=== PATIENT | male | born 1995 | race Native Hawaiian/Other Pacific Islander ===

== ENCOUNTER 2019-06-30 11:14 | Emergency (ER) | payer OTHER ==
--- NOTE | 2019-06-30 11:57 | ED ---
General Adult HPI - General Chief complaint: Abdominal Pain Stated complaint: Blood in urine Time Seen by Provider: 06/30/19 11:38 Source: patient Mode of arrival: ambulatory Limitations: no limitations - History of Present Illness Initial comments: Dictation was produced using [employer] dictation software. please excuse any grammatical, word or spelling errors. Chief Complaint: 23-year-old male with chief complaint hematuria and flank pain. History of Present Illness: 23-year-old male he has history of kidney stones. Patient states for the last 1-2 weeks he's been having persistent right-sided flank pain and hematuria. Patient is a history of kidney stones. He still [place]. States that it's been several years since he is not has had a computed tomography scan. He states the flank pain is to his right lower flank radiating to the groin. He has been having intermittent episodes of hematuria. He states that sometimes gross blood sometimes not. He states that the pain as sharp and colicky in nature. He decided to wait to see if his symptoms would improve however given that spent approximately one week his symptoms feel as though they have been persistent and getting worse lately. Denies any fever, chills or night sweats. The ROS documented in this emergency department record has been reviewed and confirmed by me. Those systems with pertinent positive or negative responses have been documented in the HPI. All other systems are other negative and/or noncontributory. PHYSICAL EXAM: General Impression: Alert and oriented x3, not in acute distress HEENT: Normocephalic atraumatic, extra-ocular movements intact, pupils equal and reactive to light bilaterally, mucous membranes moist. Cardiovascular: Heart regular rate and rhythm, S1&S2 audible, no murmurs, rubs or gallops Chest: Lungs clear to auscultation bilaterally, no rhonchi, no wheeze, no rales Abdomen: Bowel sounds present, abdomen soft, non-tender, non-distended, no organomegaly Musculoskeletal: Pulses present and equal in all extremities, no peripheral edema Motor: no focal deficits noted Neurological: CN II-XII grossly intact, no focal motor or sensory deficits noted Skin: Intact with no visualized rashes Psych: Normal affect and mood ED course: 23-year-old male chief complaint of flank pain and hematuria. He has history of kidney stones. Upon arrival are within acceptable limits. Given that patient's symptoms have been improved and slightly worsening we will obtain computed tomography scan without contrast. Laboratory evaluation obtained. CBC shows no leukocytosis. Otherwise unremarkable. Metabolic panel is negative. No findings of acute kidney injury. Urinalysis shows greater than 182 red blood cells. Computed tomography scan of the abdomen and pelvis shows a 5 mm left proximal ureteral stone. Patient ambulatory at baseline. Patient given fluids and analgesia. Patient advised to follow-up with urology upon discharge for outpatient management of kidney stone. Patient is understandable agreeable to plan. Patient told to hydrate adequately. Return parameters discussed. All questions answered. - Related Data Allergies Allergy/AdvReac Type Severity Reaction Status Date / Time No Known Allergies Allergy Verified 06/30/19 11:25 Review of Systems ROS Statement: Those systems with pertinent positive or pertinent negative responses have been documented in the HPI. ROS Other: All systems not noted in ROS Statement are negative. Past Medical History Additional Past Medical History / Comment(s): Kidney stones, History of Any Multi-Drug Resistant Organisms: None Reported Past Surgical History: No Surgical Hx Reported Past Psychological History: No Psychological Hx Reported Smoking Status: Current every day smoker Past Alcohol Use History: Occasional Past Drug Use History: Marijuana General Exam Limitations: no limitations Course Vital Signs 06/30/19 06/30/19 11:23 12:15 Temperature 97.5 F L 98.2 F Pulse Rate 88 56 L Respiratory 20 18 Rate Blood Pressure 133/77 129/54 O2 Sat by Pulse 99 99 Oximetry Medical Decision Making - Lab Data Result diagrams: 06/30/19 11:44 06/30/19 11:44 Lab Results 06/30/19 06/30/19 06/30/19 Range/Units 11:35 11:44 11:44 WBC 5.7 (3.8-10.6) k/uL RBC 4.87 (4.30-5.90) m/uL Hgb 15.6 (13.0-17.5) gm/dL Hct 46.2 (39.0-53.0) % MCV 94.8 (80.0-100.0) fL MCH 32.1 (25.0-35.0) pg MCHC 33.9 (31.0-37.0) g/dL RDW 12.7 (11.5-15.5) % Plt Count 248 (150-450) k/uL Neutrophils % 50 % Lymphocytes % 38 % Monocytes % 6 % Eosinophils % 1 % Basophils % 3 % Neutrophils # 2.8 (1.3-7.7) k/uL Lymphocytes # 2.2 (1.0-4.8) k/uL Monocytes # 0.3 (0-1.0) k/uL Eosinophils # 0.1 (0-0.7) k/uL Basophils # 0.2 (0-0.2) k/uL Sodium 141 (137-145) mmol/L Potassium 4.4 (3.5-5.1) mmol/L Chloride 106 (98-107) mmol/L Carbon Dioxide 26 (22-30) mmol/L Anion Gap 9 mmol/L BUN 13 (9-20) mg/dL Creatinine 0.69 (0.66-1.25) mg/dL Est GFR (CKD-EPI)AfAm >90 (>60 ml/min/1.73 sqM) Est GFR (CKD-EPI)NonAf >90 (>60 ml/min/1.73 sqM) Glucose 95 (74-99) mg/dL Calcium 10.1 (8.4-10.2) mg/dL Total Bilirubin 0.7 (0.2-1.3) mg/dL AST 29 (17-59) U/L ALT 24 (21-72) U/L Alkaline Phosphatase 59 (38-126) U/L Total Protein 8.3 H (6.3-8.2) g/dL Albumin 5.0 (3.5-5.0) g/dL Lipase 33 (23-300) U/L Urine Color Red Urine Appearance Turbid (Clear) Urine pH 8.0 (5.0-8.0) Ur Specific Kemp 1.019 (1.001-1.035) Urine Protein 1+ H (Negative) Urine Glucose (UA) Negative (Negative) Urine Ketones Negative (Negative) Urine Blood Large H (Negative) Urine Nitrite Negative (Negative) Urine Bilirubin Negative (Negative) Urine Urobilinogen <2.0 (<2.0) mg/dL Ur Leukocyte Esterase Trace H (Negative) Urine RBC >182 H (0-5) /hpf Urine WBC 16 H (0-5) /hpf Disposition Clinical Impression: Nephrolithiasis Disposition: HOME SELF-CARE Condition: Good Instructions (If sedation given, give patient instructions): Kidney Stones (ED) Is patient prescribed a controlled substance at d/c from ED?: No Referrals: Alistair Harden MD [STAFF PHYSICIAN] - 1-2 days Time of Disposition: 13:00
[2019-06-30 12:02] LABS: Basophils # (A) 0.2 k/uL (0-0.2); Basophils % (A) 3 %; Eosinophils # (A) 0.1 k/uL (0-0.7); Eosinophils % (A) 1 %; HCT 46.2 % (39.0-53.0); HGB 15.6 gm/dL (13.0-17.5); Lymphocytes # (A) 2.2 k/uL (1.0-4.8); Lymphocytes % (A) 38 %; MCH 32.1 pg (25.0-35.0); MCHC 33.9 g/dL (31.0-37.0); MCV 94.8 fL (80.0-100.0); Mean Platelet Volume 7.4; Monocytes # (A) 0.3 k/uL (0-1.0); Monocytes % (A) 6 %; Neutrophils # (A) 2.8 k/uL (1.3-7.7); Neutrophils % (A) 50 %; Platelet Count 248 k/uL (150-450); RBC 4.87 m/uL (4.30-5.90); RDW 12.7 % (11.5-15.5); WBC 5.7 k/uL (3.8-10.6)
[2019-06-30 12:14] LABS: ALT 24 U/L (21-72); AST 29 U/L (17-59); African American GFR (CKD) >90 (>60 ml/min/1.73 sqM); Alkaline Phosphatase 59 U/L (38-126); Anion Gap 9 mmol/L; Blood Urea Nitrogen 13 mg/dL (9-20); Calcium 10.1 mg/dL (8.4-10.2); Carbon Dioxide 26 mmol/L (22-30); Chloride 106 mmol/L (98-107); Glucose 95 mg/dL (74-99); Non-African American GFR(CKD) >90 (>60 ml/min/1.73 sqM); Sodium 141 mmol/L (137-145); Total Bilirubin 0.7 mg/dL (0.2-1.3); Total Protein 8.3 g/dL (6.3-8.2)
[2019-06-30 12:20] LABS: Appearance,Urine Turbid (Clear); Bilirubin,Urine Negative (Negative); Blood,Urine Large (Negative); Color,Urine Red; Glucose,Urine (UA) Negative (Negative); Ketones,Urine Negative (Negative); Leukocyte Esterase,Urine Trace (Negative); Nitrite,Urine Negative (Negative); Protein,Urine 1+ (Negative); RBC,Urine >182 /hpf (0-5); Specific Gravity,Urine 1.019 (1.001-1.035); Urobilinogen,Urine <2.0 mg/dL (<2.0); WBC,Urine 16 /hpf (0-5)
[2019-06-30 12:28] LABS: Potassium 4.4 mmol/L (3.5-5.1)
--- NOTE | 2019-06-30 12:36 | CT ---
EXAMINATION TYPE: CT abdomen pelvis wo con DATE OF EXAM: 06/30/2019 COMPARISON: None HISTORY: Right sided flank pain CT DLP: 493.7 mGycm Automated exposure control for dose reduction was used. TECHNIQUE: Helical acquisition of images was performed from the lung bases through the pelvis. FINDINGS: LUNG BASES: No significant abnormality is appreciated. LIVER/GB: No significant abnormality is appreciated. No radiopaque calculi in the gallbladder. PANCREAS: No significant abnormality is seen. SPLEEN: No significant abnormality is seen. No splenomegaly. ADRENALS: No significant abnormality is seen. No nodularity or thickening. KIDNEYS: 5 mm calculus obstructs in the left proximal ureter creating mild left-sided hydronephrosis. No right renal calculi are seen. No right-sided hydronephrosis. No calculi in the urinary bladder. FREE AIR: No free air is visualized ADENOPATHY: No greater than 1 cm short axis lymph node in the abdomen or pelvis. REPRODUCTIVE ORGANS: No significant abnormality is seen OSSEOUS STRUCTURES: No significant abnormality is seen. BOWEL: No dilated large or small bowel. IMPRESSION: 5 mm calculus in the left proximal ureter creating mild left-sided hydronephrosis. No rig ht renal calculi no right-sided hydronephrosis.
[2019-06-30 12:38] VITALS: RESP 18
[2019-06-30] MEDS ORDERED: SODIUM CHLORIDE 0.9% 1,000 ML IV STA (12:45)
[2019-06-30] MEDS ORDERED: KETOROLAC 30 MG/ML 1 ML VIAL IVP STA (12:45)
[2019-06-30 13:36] VITALS: BP 134/54; PULSE 68; TEMP 98.4
== END 2019-06-30 13:25 | disposition home or self-care (01) ==
LOC: EC 11:14
DX: N20.2 Calculus of kidney with calculus of ureter (principal); F17.200 Nicotine dependence, unspecified, uncomplicated
CPT/HCPCS: 36415; 80053; 83690; 85025; 81001; 74176; 99284; 96374; 96361; J1885

== ENCOUNTER → 2020-04-01 | Outpatient (CLI) | payer OTHER ==
--- NOTE | 2020-04-01 22:39 | XR ---
EXAMINATION TYPE: XR lumbar spine 2 or 3V DATE OF EXAM: 04/01/2020 CLINICAL HISTORY: Lower back pain for 2 years TECHNIQUE: Frontal and lateral images of the lumbar spine obtained COMPARISON: CT abdomen pelvis 06/30/2019 FINDINGS: There are 5 lumbar type vertebral bodies identified. The lumbar spine shows satisfactory alignment without evidence of acute fracture or dislocation. Vertebral body heights are within normal limits. There is mild L5-S1 disc space narrowing. Multilevel mild endplate osteophytosis. No spondyl olisthesis. The overlying soft tissue appears unremarkable. IMPRESSION: 1. No acute fracture or dislocation is seen in the lumbar spine. 2. Degenerative disc disease.
== END | disposition home or self-care (01) ==
LOC: RAD 15:58
PROVIDERS: ATTEND Family Medicine
DX: M51.36 Other intervertebral disc degeneration, lumbar region (principal)
CPT/HCPCS: 72100

== ENCOUNTER 2021-03-23 19:05 | Emergency (ER) | payer OTHER ==
[2021-03-23 19:11] VITALS: TEMP 98.3
[2021-03-23] MEDS ORDERED: ACETAMINOPHEN TAB 500 MG TAB PO STA (19:27)
--- NOTE | 2021-03-23 20:00 | XR ---
EXAMINATION TYPE: XR shoulder complete RT DATE OF EXAM: 03/23/2021 COMPARISON: NONE HISTORY: Pain TECHNIQUE: 3 views FINDINGS: I see no fracture nor dislocation. Joint spaces are normal. There is some malalignment at t he AC joint. There is approximate 7 mm displacement inferiorly of the acromion. IMPRESSION: There is evidence for some ligamentous injury at the AC joint. No fracture seen.
--- NOTE | 2021-03-23 20:31 | ED ---
Fall HPI - General Chief Complaint: Fall Stated Complaint: fall, rt shoulder injury Time Seen by Provider: 03/23/21 19:14 Source: patient Mode of arrival: ambulatory - History of Present Illness Initial Comments: Patient is a 27-year-old male presenting to the emergency Department with complaints of right shoulder pain. Patient states he was drinking a lot last night, did fall down and remembers landing most in his right shoulder. He states that he woke up this morning he's having a really hard time moving around, increased pain. He denies any headaches, no blurry vision, no neck pain. He denies any previous injuries or surgeries to his right shoulder. He is right-hand dominant. He has no further complaints today. - Related Data Allergies Allergy/AdvReac Type Severity Reaction Status Date / Time No Known Allergies Allergy Verified 03/23/21 19:11 Review of Systems ROS Statement: Those systems with pertinent positive or pertinent negative responses have been documented in the HPI. ROS Other: All systems not noted in ROS Statement are negative. Past Medical History Additional Past Medical History / Comment(s): Kidney stones, History of Any Multi-Drug Resistant Organisms: None Reported Past Surgical History: No Surgical Hx Reported Past Psychological History: No Psychological Hx Reported Smoking Status: Current every day smoker Past Alcohol Use History: Occasional Past Drug Use History: Marijuana General Exam - General Exam Comments Initial Comments: GENERAL: Patient is well-developed and well-nourished. Patient is nontoxic and in no acute distress. HEAD: Atraumatic, normocephalic. EYES: Pupils equal round and reactive to light, extraocular movements intact, sclera anicteric, conjunctiva are normal. Eyelids were unremarkable. ENT: TMs normal, nares patent, oropharynx clear without exudates. Moist mucous membranes. NECK: Normal range of motion, supple without lymphadenopathy or JVD. No midline tenderness. LUNGS: Unlabored respirations. Breath sounds clear to auscultation bilaterally and equal. No wheezes rales or rhonchi. HEART: Regular rate and rhythm without murmurs, rubs or gallops. ABDOMEN: Soft, nontender, normoactive bowel sounds. No guarding, no rebound. No masses appreciated. MUSCULOSKELETAL: Patient has pain with palpation of the superior portion of the right shoulder over the before meals joint. No clavicle pain, no pain of the right humerus, elbow, forearm or wrist. He is neurovascular intact. Very limited active range of motion secondary to pain. Commercial Account Officer strength is normal. No clubbing or cyanosis. NEUROLOGICAL: Patient is alert and oriented x 3. SKIN: Warm, Dry, normal turgor, no rashes or lesions noted. Limitations: no limitations Course Vital Signs 03/23/21 19:07 Temperature 98.3 F Pulse Rate 76 Respiratory 20 Rate Blood Pressure 140/81 O2 Sat by Pulse 100 Oximetry Procedures - Orthopedic Splinting/Casting Injury #1 Side: right Upper Extremity Injury Location: shoulder Upper Extremity Immobilizer: sling/shoulder immobilizer Medical Decision Making - Medical Decision Making Patient is a 25-year-old male here for right shoulder pain after he fell on it last night while drinking. No other injuries from this fall. No previous injuries or surgeries to the right shoulder. X-rays show evidence for ligamentous injury at the AC joint, no fractures. It was placed in a sling and will follow up with orthopedics. He is requesting a work note which I did give him. Recommend Tylenol and ibuprofen for discomfort. He is agreeable to this and he is stable for discharge. Disposition Clinical Impression: Fall, Sprain of right shoulder Disposition: HOME SELF-CARE Condition: Stable Instructions (If sedation given, give patient instructions): Rotator Cuff Injury (ED) Additional Instructions: Please return to the Emergency Department if symptoms worsen or any other con cerns. Wear sling for comfort, recommended Tylenol or ibuprofen for any discomfort. Recommend ice the area. Please follow up with orthopedics. Is patient prescribed a controlled substance at d/c from ED?: No Referrals: Leander Zhou MD [Primary Care Provider] - 1-2 days Jagdish Marin MD [STAFF PHYSICIAN] - 1-2 days Time of Disposition: 20:31
[2021-03-23 20:38] VITALS: BP 136/74; PULSE 65; RESP 16
== END 2021-03-23 20:38 | disposition home or self-care (01) ==
LOC: EC 19:05
DX: S43.401A Unspecified sprain of right shoulder joint, initial encounter (principal); F17.200 Nicotine dependence, unspecified, uncomplicated; F12.90 Cannabis use, unspecified, uncomplicated; W18.30XA Fall on same level, unspecified, initial encounter
CPT/HCPCS: 99284

== ENCOUNTER 2024-02-16 12:24 | Emergency (ER) | payer BC, OTHER ==
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
[2024-02-16 16:37] VITALS: BP 189/86; PULSE 57; RESP 18; TEMP 98.4
== END 2024-02-16 16:38 | disposition home or self-care (01) ==
LOC: EC 12:24
DX: S13.4XXA Sprain of ligaments of cervical spine, initial encounter (principal); M54.12 Radiculopathy, cervical region; F17.200 Nicotine dependence, unspecified, uncomplicated; X58.XXXA Exposure to other specified factors, initial encounter
CPT/HCPCS: 72125; 99283

== ENCOUNTER → 2024-02-22 | Outpatient (CLI) | payer BC ==
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
== END | disposition home or self-care (01) ==
LOC: RADMRIMAIN 06:00
PROVIDERS: ATTEND Orthopaedic Surgery
DX: M48.02 Spinal stenosis, cervical region (principal); M50.121 Cervical disc disorder at C4-C5 level with radiculopathy; M50.221 Other cervical disc displacement at C4-C5 level; M50.223 Other cervical disc displacement at C6-C7 level; S14.109A Unspecified injury at unspecified level of cervical spinal cord, initial encounter
CPT/HCPCS: 72141